=== PATIENT | male | born 1995 | race Caucasian/White ===

== ENCOUNTER 2025-07-17 12:15 | Emergency (ER) | payer OTHER, SELFPAY ==
[2025-07-17 12:29] VITALS: BP 116/72; PULSE 58; RESP 17; TEMP 37.1; O2SAT 99; BMI 19.4
--- NOTE | 2025-07-17 12:35 | XRR_ITS ---
PROCEDURE INFORMATION: Exam: XR Right Hand Exam date and time: 07/17/2025 12:38 PM Age: 30 years old Clinical indication: Injury or trauma; Other: Crushed; Crushing; Hand; Right; Additional info: Crush injury TECHNIQUE: Imaging protocol: Radiologic exam of the right hand. Views: 3 or more views. COMPARISON: No relevant prior studies available. FINDINGS: Bones/joints: Mildly displaced, comminuted fracture of the 4th digit distal phalangeal tuft with adjacent soft tissue swelling. Soft tissues: See Bones/joints finding. XR/XR hand RT min 3V* [id number] IMPRESSION: Mildly displaced, comminuted fracture of the 4th digit distal phalangeal tuft with adjacent soft tissue swelling. If there is associated soft tissue avulsion or injury to the nailbed then this should be considered an open fracture.
--- NOTE | 2025-07-17 12:40 | W.ED.EXTPRO ---
HPI - Extremity Problem General: Chief complaint: Extremity Injury, Upper Stated complaint: R hand Ring came from [facility] Time Seen by Provider: 07/17/25 12:35 History of Present Illness: 30-year-old man who presents emergency room after suffering injury to his finger at work. His distal fourth right digit was crushed between some machinery at work. He is neurovascularly intact and bleeding is controlled. Nail is is almost completely avulsed. He still in some pain. Related Data Previous Rx's ?Medication ?Instructions ?Recorded cephalexin 500 mg tablet 500 mg PO TID 7 days #21 tabs 07/17/25 tramadol 50 mg tablet 50 mg PO Q8H PRN pain #10 tabs 07/17/25 Allergies Allergy/AdvReac Type Severity Reaction Status Date / Time Penicillins Allergy Unknown Verified 07/17/25 12:32 Review of Systems Narrative: Constitutional symptoms: Negative except as documented in HPI. Skin symptoms: Negative except as documented in HPI. Eye symptoms: Negative except as documented in HPI. ENMT symptoms: Negative except as documented in HPI. Respiratory symptoms: Negative except as documented in HPI. Cardiovascular symptoms: Negative except as documented in HPI. Gastrointestinal symptoms: Negative except as documented in HPI. Genitourinary symptoms: Negative except as documented in HPI. Musculoskeletal symptoms: Negative except as documented in HPI. Neurologic symptoms: Negative except as documented in HPI. Psychiatric symptoms: Negative except as documented in HPI. Endocrine symptoms: Negative except as documented in HPI. Physical Exam Narrative: EXAM NARRATIVE: General: Alert, patient is a bit tremulous and in pain Skin: warm and dry Head: Normocephalic Neck: Trachea midline Eye: Extraocular movements are intact. Ears, nose, mouth and throat: Oral mucosa moist Respiratory: Respirations are non-labored Musculoskeletal: See images below. Neurovascularly intact. Nail avulsion. Gastrointestinal: Abdomen does not appear distended Neurological: Alert and oriented, No focal neurological deficit observed. Psychiatric: Cooperative, appropriate mood & affect. Course Vital Signs: Vital signs: Vital Signs Temperature 98.7 F 07/17/25 12:29 Pulse Rate 58 L 07/17/25 12:29 Respiratory Rate 17 07/17/25 12:29 Blood Pressure 116/72 07/17/25 12:29 Pulse Oximetry 99 07/17/25 12:29 Oxygen Delivery Me thod Room Air 07/17/25 12:29 MDM - Extremity (Nontraumatic) Medical Decision Making Medical decision making: Differential diagnosis including but not limited to and based on the above HPI, review of systems and physical exam: In this patient with a musculoskeletal extremity traumatic injury and x-ray is being ordered to rule out fractures and dislocations. Orders placed to evaluate differential diagnosis based on the above differential, HPI and physical exam X-ray of the right hand. Fourth digit has distal phalangeal tuft fracture with some tissue swelling. This was reviewed and interpreted by myself the emergency room physician. I also reviewed the radiology report. I reviewed the patient's medical record. Laceration repair procedure: Time: 1330 Confirmed patient, procedure, side, and site. Time out performed prior to procedure. Verbal consent was obtained by patient and/or responsible green party. Indication: Laceration Location: Distal fourth right digit. Length: 2 cm Description: Slow down nail to the finger and laterally put a stitch into the finger where it was lacerated. Anesthesia: 8 mL 1% lidocaine without epinephrine was applied to the base of the finger and achieved good digital block. Area prepared by sterile field with Betadine. # 5, 4-0 sutures were utilized, simple, interrupted technique. Post procedure examination: Circulation, motor, sensory intact. Patient tolerated the procedure well. No complications, bleeding. Total time: 15 min. Pt advised to keep the area clean and dry, wash twice per day with antibacterial soap and water. Return to the ED or PCP in 7-10 days for suture removal. Reexamination: Patient is neurovascular intact. Pain is controlled. Sutures in place. I discussed findings and follow-up with him. Discussed wound care. Assessment and plan: Open finger fracture -Tetanus updated. First dose antibiotics here. Hoskins here. Repair as above. - Discharged home - Discussed plan with patient. Answered any questions. - Evaluation and treatment of this problem were appropriate in the emergency setting. Lab Data Radiology Impressions Hand X-Ray 07/17/25 12:35 IMPRESSION: Mildly displaced, comminuted fracture of the 4th digit distal phalangeal tuft with adjacent soft tissue swelling. If there is associated soft tissue avulsion or injury to the nailbed then this should be considered an open fracture. All radiology interpretation(s) finalized by discharge Discharge Plan Discharge Patient Disposition: Home Clinical Impression: Open finger fracture Condition: Stable Prescriptions: New tramadol 50 mg tablet 50 mg PO Q8H PRN (Reason: pain) Qty: 10 0RF cephalexin 500 mg tablet 500 mg PO TID 7 Days Qty: 21 0RF Discharge Orders: Discharge ED (Routine); Ordered 07/17/25 Ordered By: Marylou Ordaz Referrals: Mauricio Fermin MD [Physician, Orthopedics] - 4-7 days Referral Note: Please call for orthopedic follow-up for suture removal and any other care they recommend. Either with Dr. Fermin or with orthopedic doctor of your choosing Discharge Diet: Usual diet Discharge Activity: Limit activity as instructed Patient Instructions: Opioid Safety, Pain Management, Patient Portal & Annemarie Instructions Activity Restrictions/Additional Instructions: Please call for orthopedic follow-up for suture removal and any other care they recommend. Either with Dr. Fermin or with orthopedic doctor of your choosing Keep the area clean and dry, wash twice per day with antibacterial soap and water. Return to your primary provider or the emergency room in 7 days for suture removal. Avoid any prolonged submersion in water. Avoid all sahu water, pond water, streams or other untreated water. Thank you for choosing [facility] for your healthcare needs today. You have been screened and evaluated and felt safe for discharge. Health conditions do change or evolve sometimes and as such it is important that you follow up with your Primary Doctor to be re checked, 3-5 days is a general good time frame for follow up. You are always welcome to return to the ED for re assessment if your symptoms are worsening or you have new concerns Print Language: Pashto Coding Level of Care Code ED Hopper Attendant for Eric Rich
[2025-07-17] MEDS: HYDROcodone-acetaminophen 5-325 mg Tablet 1 TAB PO (12:47)
[2025-07-17] MEDS: tetanus-dipt-pertussis 0.5 mL SDV IM (12:47)
[2025-07-17] MEDS: lidocaine 1% INJ 20 mL IM (13:43)
== END 2025-07-17 13:58 | disposition home or self-care (01) ==
PROVIDERS: Emergency Provider Emergency Medicine
DX: S62.634A Displaced fracture of distal phalanx of right ring finger, initial encounter for closed fracture (principal); W31.9XXA Contact with unspecified machinery, initial encounter
CPT/HCPCS: 12001; 73130; 90471; 90715; 99283; J9999

== ENCOUNTER → 2025-08-05 10:42 | Outpatient (BNVA) | payer OTHER, SELFPAY | PROVIDERS: Visit Provider Orthopaedic Surgery | DX: S62.604A Fracture of unspecified phalanx of right ring finger, initial encounter for closed fracture (principal); W31.89XA Contact with other specified machinery, initial encounter | CPT/HCPCS: 73130 ==